=== PATIENT | female | born 1975 | race Caucasian/White ===

== ENCOUNTER 2018-09-06 14:08 | Emergency (ER) | payer OTHER ==
[2018-09-06 14:27] VITALS: BP 117/79
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
--- NOTE | 2018-09-06 20:49 | UC ---
- Progress Note Progress Note: 1 report for C. difficile was positive therefore a prescription for vancomycin 250 mg by mouth 3 times a day 10 days is sent into the pharmacy. I will call the patient and will inform her of this. Course/Dx - Diagnoses Provider Diagnoses: Diarrhea Discharge - Sign-Out/Discharge Documenting (check all that apply): Post-Discharge Follow Up All imaging exams completed and their final reports reviewed: No Studies - Discharge Plan Condition: Fair Disposition: HOME Prescriptions: Ciprofloxacin TAB* [Cipro 500 MG TAB*] 500 mg PO BID 5 Days #10 tab Patient Education Materials: Acute Diarrhea (ED) Referrals: Wade Marin MD [Primary Care Provider] - Additional Instructions: Increase fluids, we will call you if the culture results come back positive, follow-up with your primary care provider if no improvement in 3 or 4 days. Go to the emergency room for any fever, chills, worsening abdominal pain. - Billing Disposition and Condition Condition: FAIR Disposition: Home
--- NOTE | 2018-09-06 20:54 | UC ---
- Progress Note Progress Note: I advised the patient of the positive C. difficile. I also sent in the prescription to her pharmacy for vancomycin 250 mg by mouth 3 times a day 10 days. She is to stop the cephalexin that she takes for her acne. And I advised her we will call her with the rest of the culture results when they are returned. Course/Dx - Diagnoses Provider Diagnoses: Diarrhea Discharge - Sign-Out/Discharge Documenting (check all that apply): Post-Discharge Follow Up All imaging exams completed and their final reports reviewed: No Studies - Discharge Plan Condition: Fair Disposition: HOME Prescriptions: Ciprofloxacin TAB* [Cipro 500 MG TAB*] 500 mg PO BID 5 Days #10 tab Vancomycin CAP* 250 mg PO Q8H 10 Days #30 cap Patient Education Materials: Acute Diarrhea (ED) Referrals: Wade Marin MD [Primary Care Provider] - Additional Instructions: Increase fluids, we will call you if the culture results come back positive, follow-up with your primary care provider if no improvement in 3 or 4 days. Go to the emergency room for any fever, chills, worsening abdominal pain. - Billing Disposition and Condition Condition: FAIR Disposition: Home
== END 2018-09-06 15:27 | disposition home or self-care (01) ==
LOC: UCEAST 14:08
DX: R19.7 Diarrhea, unspecified (principal); Z88.5 Allergy status to narcotic agent; Z87.891 Personal history of nicotine dependence
CPT/HCPCS: 87045; 87046; 87177; 87209; 87328; 87329; 87493; 87899; 99201; G0463

== ENCOUNTER 2019-06-12 16:47 | Emergency (ER) | payer OTHER ==
[2019-06-12 17:09] VITALS: BP 128/86
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
== END 2019-06-12 17:45 | disposition home health service (06) ==
LOC: UCEAST 16:47
DX: R51 Headache (principal); Z88.6 Allergy status to analgesic agent; Z91.030 Bee allergy status; Z88.5 Allergy status to narcotic agent; Z91.013 Allergy to seafood; Z87.891 Personal history of nicotine dependence
CPT/HCPCS: 99212; G0463

== ENCOUNTER 2019-06-12 17:53 | Emergency (ER) | payer OTHER ==
[2019-06-12] MEDS ORDERED: NS 0.9% 1000 ML** 1,000 ML IV ONE (18:04)
[2019-06-12] MEDS ORDERED: Metoclopramide IV* 5 MG/ML 2 ML VIAL IV SLOW PU ONE (18:04)
[2019-06-12] MEDS ORDERED: Ketorolac INJ* 30 MG/ML 1 ML VIAL IV ONE (18:04)
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
[2019-06-12] MEDS ORDERED: Dexamethasone IV* 10 MG in NS 0.9% 50 ML* 50 ML IVPB ONE (19:22)
[2019-06-12] MEDS ORDERED: Morphine 4 MG/ML VIAL (1 ml) 4 MG/ML VIAL IV ONE ×2 (19:23→22:37)
[2019-06-12 20:35] LABS: ABS Eosinophils 0.1 10^3/ul (0-0.6); ABS Lymphocytes 1.2 10^3/ul (1.0-4.8); ABS Monocytes 0.5 10^3/ul (0-0.8); ABS Neutrophils 5.4 10^3/ul (1.5-7.7); Hematocrit 36 % (35-47); Hemoglobin 12.4 g/dL (12.0-16.0); Lymphocyte % 16.9 %; Mean Corpuscular HGB Conc 34 g/dL (31-36); Mean Corpuscular Hemoglobin 33 pg (27-31); Mean Corpuscular Volume 95 fL (80-97); Nucleated Red Blood Cells % 0.1; Platelet Count 359 10^3/uL (150-450); Red Cell Distribution Width 13 % (10-15); White Blood Count 7.2 10^3/uL (3.5-10.8)
[2019-06-12 20:43] LABS: INR 1.05 (0.82-1.09)
[2019-06-12 20:56] LABS: Calcium 8.4 mg/dL (8.6-10.3); Potassium 3.8 mmol/L (3.5-5.0); Total Bilirubin 0.4 mg/dL (0.2-1.0)
[2019-06-12 21:02] LABS: Albumin/Globulin Ratio 1.7 (1-3); BUN/Creatinine Ratio 18.2 (8-20); EGFR African American 117.2 (>60); EGFR Non-African American 96.8 (>60); Globulin 2.3 g/dL (2-4); Total Protein 6.3 g/dL (6.4-8.9)
[2019-06-12 23:20] VITALS: BP 115/71
== END 2019-06-12 23:19 | disposition short-term general hospital (02) ==
LOC: ED 17:53
DX: D33.2 Benign neoplasm of brain, unspecified (principal); R51 Headache; R42 Dizziness and giddiness; F41.9 Anxiety disorder, unspecified; Z87.442 Personal history of urinary calculi; Z87.891 Personal history of nicotine dependence; Z79.899 Other long term (current) drug therapy
CPT/HCPCS: 36415; 70450; 80053; 85025; 85610; 96361; 96365; 96375; 96376; 99284; J1100; J1885; J2270; J2765